=== PATIENT | male | born 1980 | race Two or more races ===

== ENCOUNTER 2017-11-23 17:16 | Emergency (ER) | payer SELFPAY ==
[~2017-11-23] VITALS: Ht 180.3 cm; Wt 97.5 kg
[2017-11-23 17:26] VITALS: BP 108/76
== END 2017-11-23 18:34 | disposition left against medical advice (07) ==
LOC: ER 17:28
DX: R51 Headache (principal); R53.1 Weakness; Z53.21 Procedure and treatment not carried out due to patient leaving prior to being seen by health care provider